=== PATIENT | male | born 1990 | race Two or more races ===

== ENCOUNTER 2019-06-17 20:13 | Emergency (ER) | payer OTHER ==
[~2019-06-17] VITALS: Ht 165.1 cm; Wt 63.5 kg
--- NOTE | 2019-06-17 20:09 | NUR ---
ED Nurse Note: pt presents to ED via EMS arrival RA 30 c/o a productive cough x 2 weeks and now also has N/V/D and left sided abd px. pt reports going to a hospital for similar symptoms but since then his productive cough has gotten worse and sputum is now "greenish." EMS reports that [place] and that he has a h/o HIV and depression but has been off of his medications.
[2019-06-17 20:14] VITALS: BP 116/75
--- NOTE | 2019-06-17 20:16 | Emergency Room Report ---
History of Present Illness General Chief Complaint: Nausea, Vomiting, and Diarrhea Source: Patient, EMS Present Illness HPI Disclaimer: Please note that this report is being documented using DRAGON technology. This can lead to erroneous entry secondary to incorrect interpretation by the dictating instrument. HPI: 28-year-old male with history of HIV no longer taking medication presents for evaluation of cough, vomiting and diarrhea. He has had a productive cough with green sputum for the past 2 weeks. Notes intermittent sweats and chills but no objective fevers were noted. Today he began to have some abdominal discomfort, nausea and several episodes of nonbloody nonbilious emesis. Noted 1 episode of nonbloody diarrhea. Denies melena. Did not receive a flu shot this year. Denied respiratory distress. Otherwise denies any chest pain, palpitations, rash. PMH: HIV, depression PSH: Denied Allergies: Seroquel Social Hx: Reports smoking. Denies alcohol or drug use Allergies: Coded Allergies: QUETIAPINE (Verified Allergy, Unknown, 06/17/19) Review of Systems All Other Systems: negative except mentioned in HPI Physical Exam Vital Signs Date Time Temp Pulse Resp B/P (MAP) Pulse Ox O2 Delivery O2 Flow Rate FiO2 06/17/19 20:09 97.3 105 18 116/75 (89) 97 Room Air General: Awake and alert, no acute distress HEENT: NC/AT. EOMI. Cardiovascular: RRR. S1 and S2 normal. No murmur appreciated Resp: Normal work of breathing. No cough, wheezing or crackles appreciated Abdomen: Abdomen is soft, nondistended. Nontender Skin: Intact. No abrasions, laceration or rash over the exposed skin MSK: Normal tone and bulk. Moving all extremities. No obvious deformity. Neuro: Awake and alert. Mentating appropriately. Medical Decision Making Diagnostic Impression: Primary Impression: Cough Additional Impression: Nausea, vomiting, and diarrhea ER Course 28-year-old male presents for evaluation of 2 weeks cough, intermittent sweats, 1 day of vomiting and diarrhea. He arrives with stable vital signs, well- appearing, nontender abdomen. Physical exam is largely reassuring and no gross findings on longer abdominal exam. Patient declined blood work, IV medications or IV fluids at this time. He will except a flu swab and chest x-ray. Will except oral Zofran. Microbiology Date/Time Source Procedure Growth Status 06/17/19 20:15 Nasal Nares - Final Complete 06/17/19 20:15 Nasal Nares - Final Complete Chest X-Ray Diagnostic Results Chest X-Ray Diagnostic Results : Chest X-Ray Ordered: Yes # of Views/Limited/Complete: 1 View Indication: Other - Cough Interpretation: no consolidation, no effusion, no pneumothorax, no acute cardiopulmonary disease Impression: No acute disease Electronically Signed by: Electronically signed by Dr. Gregorio Coronado Reevaluation Time: 21:06 Last Vital Signs Date Time Temp Pulse Resp B/P (MAP) Pulse Ox O2 Delivery O2 Flow Rate FiO2 06/17/19 20:09 97.3 105 18 116/75 (89) 97 Room Air Reevaluation Impression No evidence of pneumonia or other significant findings on chest x-ray. Influenza swab is negative. Patient was able to eat and drink in the emergency department without any difficulty. Will discharge on Zofran and follow-up with clinic. He understands and agrees with treatment plan will be discharged. Disposition: HOME, SELF-CARE Condition: Stable Scripts Ondansetron Odt* (ZOFRAN ODT*) 4 Mg Tab.rapdis 4 MG BC EVERY 6 HOURS PRN for Nausea & Vomiting, #10 TAB 0 Refills Prov: Gregorio Coronado MD 06/17/19 Gregorio Coronado MD Jun 17, 2019 20:16
--- NOTE | 2019-06-17 20:19 | NUR ---
ED Nurse Note: pt refuses IV or any needle pokes. unable to obtain blood. ERMD notified. will orally hydrate and give pt PO meds. pt agreed to influenza swab and CXR. asking for something to eat
--- NOTE | 2019-06-17 20:25 | NUR ---
ED Nurse Note: pt provided with sandwhich, juice and water which he tolerated withou vomiting or any complaints of nausea
--- NOTE | 2019-06-17 20:49 | NUR ---
ED Nurse Note: pt is requesting pain meds, specifically arthur stating that it is the only thing that works for his foot px Addendum: 06/17/19 at 2053 by IVAN pt states that his foot px is from an injury from a year ago. ROSARIO at pt bedside
[2019-06-17] MEDS ORDERED: HYDROcodone/Acetamin 5/325 tab ORAL ONE (21:00)
[2019-06-17] MEDS ORDERED: ONDANSETRON ODT4 MG BC (21:07)
[2019-06-17 21:10] VITALS: BP 116/75
--- NOTE | 2019-06-17 21:13 | NUR ---
ER DISCHARGE NOTE: Patient is cleared to be discharged per ERMD, pt is aox4, on room air, with stable vital signs. pt was given dc and prescription instructions, pt was able to verbalize understanding, pt id band removed without complications. pt is able to ambulate with steady gait. pt took all belongings.
--- NOTE | 2019-06-18 11:05 | Diagnostic Imaging Report ---
Indication: Cough Technique: One view of the chest Comparison: none Findings: Lungs and pleural spaces are clear. Heart size is normal. Impression: No acute process
== END 2019-06-17 21:10 | disposition home or self-care (01) ==
LOC: EDBD 20:13 → EMR 21:01
DX: R05 Cough (principal); R11.2 Nausea with vomiting, unspecified; R19.7 Diarrhea, unspecified; B20 Human immunodeficiency virus [HIV] disease; F17.200 Nicotine dependence, unspecified, uncomplicated; Z88.8 Allergy status to other drugs, medicaments and biological substances; F32.9 Major depressive disorder, single episode, unspecified
CPT/HCPCS: 71045; 86710; Z7502; 99283